=== PATIENT | female | born 1950 | race Caucasian/White ===

== ENCOUNTER → 2017-09-20 17:26 | Outpatient (CLI) | payer MEDICARE ==
[2010-07-08 10:45] VITALS: BMI 23.3
== END | disposition home or self-care (01) ==
LOC: D.MAMMO 13:15
DX: Z12.31 Encounter for screening mammogram for malignant neoplasm of breast (principal)

== ENCOUNTER → 2017-10-19 18:22 | Outpatient (CLI) | payer MEDICARE ==
[2010-07-08 10:45] VITALS: BMI 23.3
== END | disposition home or self-care (01) ==
LOC: D.MAMMO 10-15 11:30 → D.US 10-15 13:30 → D.MAMMO 10:30
DX: R92.8 Other abnormal and inconclusive findings on diagnostic imaging of breast (principal)

== ENCOUNTER 2018-11-28 08:00 | Outpatient (CLI) | payer MEDICARE, BC ==
[2010-07-08 10:45] VITALS: BMI 23.3
== END 2018-11-28 09:00 | disposition home or self-care (01) ==
LOC: D.MAMMO 08:00
PROVIDERS: ATTEND Family Medicine
DX: Z12.31 Encounter for screening mammogram for malignant neoplasm of breast (principal)